=== PATIENT | male | born 1945 | race Caucasian/White ===

== ENCOUNTER 2016-12-06 22:50 | Emergency (ER) | payer OTHER ==
[~2016-12-06] VITALS: Ht 182.9 cm; Wt 101.0 kg
[~2016-12-06 22:50] MED LIST: KEFLEX500 MG PO
[2016-12-06 22:54] VITALS: BP 150/90
[2016-12-07] MEDS ORDERED: AUGMENTIN80 MG/ML PO (00:25)
[2016-12-07] MEDS ORDERED: LORTAB 10 MG-3473 ML PO (00:27)
== END 2016-12-07 00:49 | disposition home or self-care (01) ==
LOC: EME → EDBD 22:50 → EME 22:50
DX: J36 Peritonsillar abscess (principal); E11.9 Type 2 diabetes mellitus without complications; E78.5 Hyperlipidemia, unspecified; K21.9 Gastro-esophageal reflux disease without esophagitis; Z87.442 Personal history of urinary calculi
CPT/HCPCS: 99281; 99284